=== PATIENT | male | born 1980 | race Caucasian/White ===

== ENCOUNTER 2016-09-10 15:07 | Observation (INO) | payer SELFPAY ==
[~2016-09-10] VITALS: Ht 182.9 cm; Wt 104.0 kg
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
--- NOTE | ~2016-09-10 | DS ---
PATIENT'S NAME: AGUILAR MONCADA [facility] AGE: 36 Y [address] ROOM: [place] [address] LOCATION: GPED ADMIT DATE: 09/10/2016 Discharge Summary DISCHARGE DATE: 09/11/2016 FAMILY PHYSICIAN: Marvin Arenas MD ATTENDING PHYSICIAN: Sydney Tomlin(Bassem) FINAL DIAGNOSIS: Perirectal abscess. HOSPITAL COURSE: Aguilar was admitted on September 10, 2016 with a 1-week history of perirectal pain. He was found to have a perirectal abscess x2 and was taken the OR for drainage, the following morning, he was passing gas and was able to void and his pain was significantly improved. No fevers or chills. He is tolerating diet. He was ready for discharge. He was given appropriate followup and discharge instructions. He was sent home on clindamycin and prescription for Percocet, and he will see us back in the office on Monday in order to have the Jovita removed. SYDNEY(BASSEM) MD LISSET TOMLIN/margo /[id number] d: t: 09/12/16 1341, DISCHARGE SUMMARY
--- NOTE | ~2016-09-10 | OR ---
PATIENT'S NAME: AGUILAR MONCADA [facility] AGE: 36 Y [address] ROOM: [place] [address] LOCATION: GPED ADMIT DATE: 09/10/2016 OR/Procedure Report DISCHARGE DATE: FAMILY PHYSICIAN: Marvin Arenas MD ATTENDING PHYSICIAN: Sydney BENITEZ) SURGEON: Sydney Benitez MD (Jake) LEAD C DEVELOPER: DATE OF PROCEDURE: 09/10/2016 PREOPERATIVE DIAGNOSIS: Perirectal abscess. POSTOPERATIVE DIAGNOSIS: Perirectal abscess. PROCEDURE: Exam under anesthesia and incision and drainage of perirectal abscess x2. ANESTHESIA: General endotracheal anesthesia. COMPLICATIONS: None. ESTIMATED BLOOD LOSS: Minimal. DRAINS: 0.5-inch Ithaca x2. SPECIMENS: Abscess sent for anaerobic and aerobic cultures. FINDINGS: Two separate abscesses were noted. There was a right lateral, slightly anterior, very superficial abscess measuring about 1 cm. This was about 3.5 to 4 cm from the anal verge. The second abscess was a larger, about a 4 x 4 cm cavity that was left and posterior in a type of horseshoe type fashion. This was deep to the sphincters and was not easily palpable at the skin level. A rectal exam revealed a perirectal mass starting from about 1 cm from the anal verge and tracking up to about 4 cm proximally. PQRI: SCDs were placed on prior to the case and were on throughout. Chemoprevention was not necessary for this very brief completely ambulatory procedure in an otherwise low-risk patient. Clindamycin 900 mg IV was given within 1 hour prior to surgery as a single dose only. The patient will get postoperative p.o. clindamycin to cover his treatment for abscess infection. DETAILS OF PROCEDURE: After informed consent was obtained, the patient was brought to the operating room and placed in a supine position. All pressure points were padded, and general endotracheal anesthesia was induced. The PATIENT'S NAME: AGUILAR MONCADA [facility] AGE: 36 Y [address] ROOM: [place] [address] LOCATION: GPED ADMIT DATE: 09/10/2016 OR/Procedure Report DISCHARGE DATE: FAMILY PHYSICIAN: Marvin Arenas MD ATTENDING PHYSICIAN: Sydney BENITEZ (Alexis) patient was then placed up in high lithotomy position with candy canes, and all pressure points were padded. The perirectal area was prepped and draped in the usual sterile fashion. The right lateral abscess was dealt with first as this was quite superficial and easy to deal with. 0.25% Marcaine without epinephrine was then infiltrated around the ischial tuberosities as well as at the site of incisions. An elliptical incision overlying the palpable fluctuant mass was done. It was carried down through the skin and soft tissues, and an ellipse of skin was removed. Two small pockets were found internally and were broken up with manual palpation. A 0.5-inch Ithaca was then cut and placed into those cavities and secured to the skin next to the incision. We then tackled the left posterolateral abscess. Digital palpation transrectally identified the location of this mass, but it was too high up to easily drain intrarectally. Thus, we elected to drain this percutaneously. We used an 18-gauge finder needle to direct this into the abscess cavity and essentially followed that tract by making a small 1 cm incision in the skin and then with a clamp following it into that abscess cavity which revealed a significant amount of pus. Manual palpation from the inside was performed in order to make sure that the entire cavity was decompressed through that and a significant amount of pus was indeed removed. The initial needle that was sent to aspirate pus from there was actually sent for aerobic and anaerobic cultures. A Ithaca was then placed along that tract and secured to the surrounding skin with 2-0 nylon suture. Hemostasis was ensured. A 4 x 4 gauze, abdominal binder, and tape were then placed for dressing. The patient was then awakened and taken back to recovery in stable condition. MD LISSET REHMAN (JAKE)/margo /[id number] d: t: 09/10/16 2250, OPERATIVE SUMMARY
--- NOTE | ~2016-09-10 | ER ---
PATIENT'S NAME: AGUILAR MONCADA [facility] AGE: 36 Y [address] ROOM: [place] [id number] LOCATION: [facility] ADMIT DATE: 09/10/2016 ER/Outpatient Report DISCHARGE DATE: FAMILY PHYSICIAN: Marvin Arenas MD ATTENDING PHYSICIAN: Sydney BENITEZ) Time of Arrival: 1507 hours. Time of Evaluation: 1515 hours. CHIEF COMPLAINT: Buttock pain. HISTORY OF PRESENT ILLNESS: This is a 36-year-old male, who presents to the ER, who states that he was having some rectal pain and went to his primary care physician and was seen on the of this month. They state that he was referred to see Dr. Spicer the same day and Dr. Spicer noted that he had anal fissure and on digital rectal exam was found to have a toothpick in his rectum. He states that he did remove this toothpick without difficulty, but the patient states he has continued to have severe rectal pain. The patient states he is having difficulty with defecating secondary to the pain. He has not noticed any fevers at home. No troubles with urination. No other problems at this time. ALLERGIES: AMOXICILLIN, WHICH GIVES HIM HIVES. MEDICATIONS: Please see medication list nurse's notes. PAST MEDICAL HISTORY: Negative. PAST SURGERIES: None. SOCIAL HISTORY: He smokes a pack a day for the last 20 years. Denies any drug or alcohol use. REVIEW OF SYSTEMS: A 10-point review of systems was completed and was negative with the exception of those discussed in the HPI. PHYSICAL EXAMINATION: VITAL SIGNS: Height 6 feet stated, weight 103.4 kg taken, blood pressure is 135/65, pulse 76, respirations 16, temperature 98.8 degrees tympanically, and PATIENT'S NAME: AGUILAR MONCADA [facility] AGE: 36 Y [address] ROOM: [place] [id number] LOCATION: [facility] ADMIT DATE: 09/10/2016 ER/Outpatient Report DISCHARGE DATE: FAMILY PHYSICIAN: Marvin Arenas MD ATTENDING PHYSICIAN: Sydney BENITEZ) saturations 97% on room air. Susu Coma Score is 15. GENERAL: Alert, calm, well-developed male, in moderate distress. HEENT: Head: Normocephalic. He does display moist mucous membranes. Eyes: Pupils are equal and reactive to light. NECK: Supple. No lymphadenopathy. LUNGS: Clear to auscultation bilaterally. No wheezes or crackles. Normal respiratory effort. HEART: Regular rate and rhythm. No lifts, thrills, or murmurs. ABDOMEN: Soft. It is nontender. He has good bowel sounds throughout. No masses were palpated. RECTAL: Rectal exam was done and he does have a small mass in the posterior portion of the rectum. There is no active drainage from the area. It does cause him quite a bit of discomfort upon examination. SKIN: Warm, dry, and intact. NEURO: Cranial nerves II through XII grossly intact. Gait is steady without assistance. LABORATORY DATA AND X-RAYS: CBC: White blood cells 10.8, hemoglobin is 13.0, platelets 185, ANC is 8.5. Sedimentation rate is 53. CMS: Sodium is 134 and glucose is 105, otherwise unremarkable. CRP is 10.50. CT scan with IV contrast showed a small U-shaped posterior perirectal abscess. Also states that he has a small fluid collection adjacent to the anterior right side of the pelvis, which could communicate with the posterior abscess or could reflect a second small perirectal abscess. IMPRESSION: Rectal pain secondary to perirectal abscess. ASSESSMENT AND PLAN: I did discuss the patient's care with Dr. Nguyen. Dr. Nguyen also evaluated the patient. We did start an IV here in the emergency room and did give him a total of 8 mg of morphine during his stay here in the emergency room along with a liter of IV fluids. We did call Dr. Benitez, who was on-call for surgery, and he will be coming to evaluate the patient. The patient and patient's understand and agree with care. HANNA BETTS PA-C FOR MD RADHA SAHA/margo PATIENT'S NAME: AGUILAR MONCADA [facility] AGE: 36 Y [address] ROOM: [id number] [place], [place] [address] LOCATION: [facility] ADMIT DATE: 09/10/2016 ER/Outpatient Report DISCHARGE DATE: FAMILY PHYSICIAN: Marvin Arenas MD ATTENDING PHYSICIAN: Sydney BENITEZ ([facility]) /[id number] I have personally evaluated this patient. I have participated in their care and agree with the assessment and plan as documented above. Ultimately taken to OR for drainage by Dr. Benitez. Jaya Nguyen MD d: t: 09/13/16 1751, OUTPATIENT REPORT
[2016-09-10 16:21] LABS: BASOPHIL % 0.3 %; EOSINOPHIL # 0.1 K/uL (0.0-0.5); EOSINOPHIL % 0.5 %; HEMATOCRIT 37.4 % (37.0-53.0); IMMATURE GRANULOCYTE % 0.4 %; LYMPHOCYTE # 1.1 K/uL (0.8-4.0); LYMPHOCYTE % 10.5 %; MCH 32.4 pg (27.0-34.0); MCHC 34.8 gm/dL (32.0-36.5); MCV 93.3 fl (83.0-98.0); MONOCYTE % 9.2 %; NEUTROPHIL # (ANC) 8.5 K/uL (1.4-9.0); NEUTROPHIL % 79.1 %; NRBC % 0 /100WBC (0-0.00); PLATELET COUNT 185 K/uL (150-450); RBC 4.01 M/uL (4.00-6.00); RDW-CV 11.5 % (11.9-14.6); WBC 10.8 K/uL (4.0-11.0)
[2016-09-10 16:37] LABS: ALK PHOS 70 IU/L (33-138); ALT 31 IU/L (12-78); ANION GAP 13.1 (10.0-19.0); AST 16 IU/L (10-40); BLOOD UREA NITROGEN 11 mg/dL (6-24); CALCIUM 8.8 mg/dL (8.5-10.5); CHLORIDE 99 mMol/L (96-110); CO2 26 mMol/L (22-32); ESTIMATED GFR (MDRD EQUATION) > 60; POTASSIUM 4.1 mMol/L (3.7-5.1); SODIUM 134 mMol/L (135-145); TOTAL BILIRUBIN 0.4 mg/dL (0.0-1.5); TOTAL PROTEIN 7.1 g/dL (6.0-8.4)
[2016-09-10] MEDS ORDERED: ADVIL200 MG PO (19:35)
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
--- NOTE | 2016-09-11 04:08 | NUR ---
Significant Event: Patient alert and oriented x3. Arrived up from surgery at 2140. Right hand IV saline locked. Vitals stable, except running temp with max at this time 102.3, at 0335 temp was 100.8. Motrin given and has scheduled oral antibiotic. Ice packs given earlier. Gauze to perirectal area changed x2 for small to moderate amount of bloody drainage. Has 2 seng drains sutured to bottom, has one on the left and right. Given 4mg IV morphine and has refused pain meds since, rating pain 4/10. Did have small emesis that was watery as pt reports he drank way too fast. No nausea. at bedside. Pleasant/cooperative with cares Follow up: monitor temps, obtain order for stool softners
[2016-09-11] MEDS ORDERED: CLINDAMYCIN HC300 MG PO (13:10)
[2016-09-11] MEDS ORDERED: PERCOCET 5-3251 EACH PO (13:14)
== END 2016-09-11 13:35 | disposition disaster alternative care site (69) ==
LOC: GMED 15:07 → G3N 18:31 → GPED 22:22
PROVIDERS: Physician Assistant Medical; ADMIT Surgery
PROC: 0D9P0ZZ Drainage of Rectum, Open Approach (ICD-10-PCS; principal; 2016-09-10)
DX: K61.1 Rectal abscess (principal); Z87.891 Personal history of nicotine dependence; Z88.1 Allergy status to other antibiotic agents; Z79.1 Long term (current) use of non-steroidal anti-inflammatories (NSAID); Z79.2 Long term (current) use of antibiotics
CPT/HCPCS: G0378; J2001; J2270; J3010; J7030; Q9967

== ENCOUNTER 2016-09-12 01:33 | Observation (INO) | payer OTHER ==
[~2016-09-12] VITALS: Ht 182.9 cm; Wt 106.9 kg
--- NOTE | ~2016-09-12 | HP ---
PATIENT'S NAME: AGUILAR MONCADA [facility] AGE: 36 Y [address] ROOM: [place] [address] LOCATION: [facility] ADMIT DATE: 09/12/2016 History & Physical DISCHARGE DATE: FAMILY PHYSICIAN: PHYSICIAN, NO ATTENDING PHYSICIAN: Sydney TOMLIN (Bassem) DATE OF SERVICE: CHIEF COMPLAINT: Persistent perirectal pain. HISTORY OF PRESENT ILLNESS: Aguilar was just discharged from our hospital yesterday after being admitted on 09/10/2016 with a perirectal abscess x2. He went to the OR with draining of these abscesses and was discharged home, but continued to have worsening pain, especially on his right side and some fevers, he was brought back to the hospital. In the ER, CT scan was performed that showed resolution of the deeper left posterior-inferior abscess, but the right abscess was not completely resolved and actually had tracked upwards. He continues to have pain in that location. For complete H and P, please see my previously dictated H and P, no other changes from his past medical history, social history, family history, otherwise. REVIEW OF SYSTEMS: Denies chest pain, shortness of breath, or other rashes. Otherwise, full 10- point review of systems was discussed with the patient and was negative except for as discussed above. PHYSICAL EXAMINATION: GENERAL: In no apparent distress. Alert and oriented x3. HEART: Rate and rhythm regular. LUNGS: Breathing nonlabored. ABDOMEN: Soft, nontender, nondistended. PERIRECTAL: Shows persistence of the erythema on the right gluteal with persistent edema, no fluctuance could be palpated. Both Jovita are still in place. Purulent drainage from the left Jovita present. Bilateral lower extremities are warm. Brisk capillary refill without evidence of significant edema. No obvious calf tenderness or swelling. RADIOLOGY REVIEW: CT scan of the abdomen and pelvis shows worsening of the right abscess with progression superiorly towards the base of the penis, resolution of the left abscess. PATIENT'S NAME: AGUILAR MONCADA [facility] AGE: 36 Y [address] ROOM: [place] [address] LOCATION: [facility] ADMIT DATE: 09/12/2016 History & Physical DISCHARGE DATE: FAMILY PHYSICIAN: PHYSICIAN, NO ATTENDING PHYSICIAN: Sydney TOMLIN (Bassem) ASSESSMENT AND PLAN: A 36-year-old gentleman with persistent rectal abscess, admit IV fluids, IV antibiotics, and return to the OR for additional attempt at drainage of that right abscess. SYDNEY(BASSEM) MD LISSET TOMLIN/margo /[id number] D: T: [id number] HISTORY & PHYSICAL
--- NOTE | ~2016-09-12 | OR ---
PATIENT'S NAME: AGUILAR MONCADA [facility] AGE: 36 Y [address] ROOM: [address] [address] [facility] ADMIT DATE: 09/12/2016 OR/Procedure Report DISCHARGE DATE: FAMILY PHYSICIAN: PHYSICIAN, NO ATTENDING PHYSICIAN: Sydney TOMLIN ([facility]) SURGEON: Freddy Spicer MD BOAT DOCK OPERATOR: DATE OF PROCEDURE: 09/12/2016 PREOPERATIVE DIAGNOSIS: Residual or recurrent perirectal abscess in the right anterior position. POSTOPERATIVE DIAGNOSIS: Residual or recurrent perirectal abscess in the right anterior position. PROCEDURE PERFORMED: Repeat incision and drainage of perirectal abscess. ANESTHESIA: General. ESTIMATED BLOOD LOSS: 10 mL. SPECIMEN: None. REASON FOR PROCEDURE: The patient is a 36-year-old gentleman, who had a foreign body removed from his rectum last week. Over the weekend, he developed a horseshoe perirectal abscess that had been drained surgically from both sides. He returned with recurrent pain and fevers and a CT scan showed an increasing abscess in the right anterior position that did not appear to be adequately drained. The rest of the abscess appeared well drained. Decided to proceed with repeat incision and drainage. FINDINGS: We were able to find a several centimeter abscess in the right anterior position that did not communicate with the others. We were able to bluntly open this abscess into the previous I and D site and get a draining well. A Jovita drain was then left in. PROCEDURE IN DETAIL: The patient was taken to the operating suite and left in the supine position with the legs up in stirrups. The perianal area was prepped with Betadine and draped. The left side was left alone. The previous Jovita in the right side was removed. We advanced an 18-gauge needle into the abscess cavity in the right anterior position. This seemed to be fairly close proximally to the other I and D site. I went ahead and advanced a hemostat through the previous incision and entered the abscess. A large amount of purulent drainage was released. We then advanced a new 0.25-inch Jovita through the previous incision and up into the new abscess. This was PATIENT'S NAME: AGUILAR MONCADA [facility] AGE: 36 Y [address] ROOM: [id number] [place] [id number] LOCATION: [facility] ADMIT DATE: 09/12/2016 OR/Procedure Report DISCHARGE DATE: FAMILY PHYSICIAN: PHYSICIAN, CATARINA ATTENDING PHYSICIAN: Sydney TOMLIN (Alexis) then sutured in place with a silk suture. A veronica pad was then applied. POSTPROCEDURE PLAN: The patient will be sent to recovery and then back to the floor. We will advance his diet and activities as tolerated. We will keep him on IV Invanz for the time being. MD SUSHMA STEPHENS/margo /[id number] d: 09/12/162204 t: 09/16/16 0902, OPERATIVE SUMMARY
--- NOTE | ~2016-09-12 | ER ---
PATIENT'S NAME: AGUILAR MONCADA [facility] AGE: 36 Y [address] ROOM: [id number] [place] [id number] LOCATION: [facility] ADMIT DATE: 09/12/2016 ER/Outpatient Report DISCHARGE DATE: FAMILY PHYSICIAN: PHYSICIAN, NO ATTENDING PHYSICIAN: Sydney TOMLIN (Alexis) Time of Arrival: 0133 hours. Time of Evaluation: The patient was seen at 0200 hours. CHIEF COMPLAINT: This is a 36-year-old male. He is previously healthy. He is in with complaint of fever and perirectal pain after postoperative drainage of a perirectal abscess. HISTORY OF PRESENT ILLNESS: The patient was seen 2 days ago with perirectal abscess related to a swallowed toothpick. Incision and drainage was carried out in the operating room. He had two discrete abscesses, one of them had improved dramatically. The one on his right butt cheek was more swollen, red, tender, and indurated, and he developed a fever last night. PAST MEDICAL HISTORY: He has no chronic medical problems. CURRENT MEDICATIONS: Include: Clindamycin, and Percocet for pain. REVIEW OF SYSTEMS: Otherwise, negative. SOCIAL HISTORY: He is a 1 pack per day smoker. PHYSICAL EXAMINATION: GENERAL: Alert and cooperative male, in no acute distress. VITAL SIGNS: Stable. SKIN: Warm and dry. Color is normal. ABDOMEN: Soft and nontender. GENITOURINARY: Unremarkable. RECTAL: He had a large tender indurated area in the right perianal area. A drain is in place. However, there is no purulent drainage. Nothing could be expressed from the area and it is quite tender. IMAGING STUDIES: A CT scan was repeated and revealed worsening of the perirectal abscess on the PATIENT'S NAME: AGUILAR MONCADA [facility] AGE: 36 Y [address] ROOM: [address] [place], [place] [address] [facility]: [facility] ADMIT DATE: 09/12/2016 ER/Outpatient Report DISCHARGE DATE: FAMILY PHYSICIAN: PHYSICIAN, NO ATTENDING PHYSICIAN: Sydney TOMLIN) right, and resolution of the midline abscess. ASSESSMENT: Perirectal abscess worsening in spite of previous incision and drainage. PLAN: Surgical consultation. Surgeon was called, arrived immediately, and made arrangements to take the patient to the operating room later today. MD NIA LESLIE/modl /[id number] d: 09/12/16 1144 t: 10/10/16 0956, OUTPATIENT REPORT
[~2016-09-12 01:33] MED LIST: ADVIL200 MG PO; CLINDAMYCIN HC300 MG PO; PERCOCET 5-3251 EACH PO
[2016-09-12 02:19] LABS: BASOPHIL % 0.3 %; EOSINOPHIL # 0.1 K/uL (0.0-0.5); EOSINOPHIL % 0.9 %; HEMATOCRIT 33.7 % (37.0-53.0); HEMOGLOBIN 11.9 g/dL (12.0-17.0); IMMATURE GRANULOCYTE % 0.4 %; LYMPHOCYTE # 1.4 K/uL (0.8-4.0); LYMPHOCYTE % 13.5 %; MCH 32.4 pg (27.0-34.0); MCHC 35.3 gm/dL (32.0-36.5); MCV 91.8 fl (83.0-98.0); MONOCYTE # 1.3 K/uL (0.0-1.0); MONOCYTE % 12.6 %; MPV 10.3 fl (9.4-12.4); NEUTROPHIL # (ANC) 7.7 K/uL (1.4-9.0); NEUTROPHIL % 72.3 %; NRBC % 0 /100WBC (0-0.00); PLATELET COUNT 171 K/uL (150-450); RBC 3.67 M/uL (4.00-6.00); RDW-CV 11.5 % (11.9-14.6); WBC 10.6 K/uL (4.0-11.0)
[2016-09-13] MEDS ORDERED: SENNA8.6 MG PO (13:15)
[2016-09-13] MEDS ORDERED: MILK OF MA400 MG/5 M PO (13:21)
== END 2016-09-13 15:20 | disposition disaster alternative care site (69) ==
LOC: GMED 01:33 → GNTU 03:40 → GPED 03:40 → GNTU 03:40 → GPED 09-13 01:51 → G3N 09-13 01:52 → GPED 09-13 01:52
PROVIDERS: Emergency Medicine; ADMIT Surgery
PROC: 0D9P0ZZ Drainage of Rectum, Open Approach (ICD-10-PCS; principal; 2016-09-12)
DX: T81.4XXA Infection following a procedure, initial encounter (principal); F17.210 Nicotine dependence, cigarettes, uncomplicated; Z79.2 Long term (current) use of antibiotics; Z88.1 Allergy status to other antibiotic agents
CPT/HCPCS: G0378; J1100; J1335; J2001; J2250; J2405; J3480; J7030; J7050; Q9967